=== PATIENT | female | born 1960 | race Caucasian/White ===

== ENCOUNTER 2016-10-09 18:15 | Emergency (ER) | payer MEDICAID, MEDICARE ==
[2016-10-09] MEDS ORDERED: HYDROmorphone* 1 MG/ML 1 ML SYR IV ONE (18:42)
[2016-10-09] MEDS ORDERED: NS 0.9% 1000 ML* 1,000 ML IV ONE (18:42)
[2016-10-09] MEDS ORDERED: Ondansetron INJ* 2 MG/ML VIAL IV ONE (18:42)
[2016-10-09 19:00] LABS: Hematocrit 43 % (35-47); Hemoglobin 13.9 g/dl (12.0-16.0); Mean Corpuscular HGB Conc 32 g/dl (31-36); Mean Corpuscular Hemoglobin 30 pg (27-31); Mean Corpuscular Volume 92 fL (80-97); Mean Platelet Volume 9 um3 (7.4-10.4); Red Blood Count 4.65 10^6/ul (4.0-5.4); Red Cell Distribution Width 14 % (10.5-15); White Blood Count 11.4 10^3/ul (3.5-10.8)
[2016-10-09 19:17] LABS: Albumin 4.5 g/dL (3.2-5.2); BUN/Creatinine Ratio 22.9 (8-20); Calcium 9.3 mg/dL (8.6-10.3); EGFR African American 77.6 (>60); EGFR Non-African American 60.3 (>60); Globulin 2.6 g/dL (2-4); Potassium 3.8 mmol/L (3.5-5.0); Total Bilirubin 0.4 mg/dL (0.2-1.0); Total Protein 7.1 g/dL (6.4-8.9)
[2016-10-09] MEDS ORDERED: Iohexol 300* (CONTRAST) 10 ML SDV IV ONE (19:43)
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
[2016-10-09] MEDS ORDERED: HYDROmorphone* 1 MG/ML 1 ML SYR IV SLOW PU ONE (20:15)
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
[2016-10-09] MEDS ORDERED: oxyCODONE/Acetamin 5/325 MG* TAB PO ONE (22:37)
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
[2016-10-09 23:10] VITALS: BP 141/77
== END 2016-10-09 23:51 | disposition home or self-care (01) ==
LOC: ED 18:15
DX: S22.31XA Fracture of one rib, right side, initial encounter for closed fracture (principal); S51.811A Laceration without foreign body of right forearm, initial encounter; S50.01XA Contusion of right elbow, initial encounter; V27.0XXA Motorcycle driver injured in collision with fixed or stationary object in nontraffic accident, initial encounter; Y92.9 Unspecified place or not applicable; I10 Essential (primary) hypertension; F17.210 Nicotine dependence, cigarettes, uncomplicated
CPT/HCPCS: 12001; 36415; 70450; 71260; 72125; 74177; 80053; 80320; 83605; 85025; 93005; 96361; 96374; 96375; 99284; A9270-GY; G0480; J1170; J2405; Q9967

== ENCOUNTER 2018-08-12 09:15 | Inpatient (IN) | payer MEDICARE ==
[2018-08-12] MEDS ORDERED: NS 0.9% 1000 ML** 1,000 ML IV ONE (09:30)
[2018-08-12] MEDS ORDERED: methylPREDNISolone 125 MG* 2 ML VIAL IV ONE (09:30)
--- NOTE | 2018-08-12 09:30 | ED ---
Respiratory - HPI Summary HPI Summary: A 57 y/o F brought in by ambulance with pert PMHx: COPD presents to ED with c/o worsening, productive cough onset last night. Phlegm is yellow-green and thick. Associated sx: difficulty talking, chest discomfort. She states it feels like she is suffocating. Per family, patient has been sick for the past month but her cough became really bad last night. Her BP last night was 210/180. She does not use home O2. She was given a nebulizer en route to ED. Patient still smokes. 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 Onset/Duration: Gradual Onset, Lasting Hours, Still Present Timing: Constant Initial Severity: Moderate Current Severity: Severe Pain Intensity: 7 Character: Cough (Productive) Sputum Color: Yellow, Green Associated Signs and Symptoms: Chest Pain - "discomfort" - Allergy/Home Medications Allergies/Adverse Reactions: Allergies Allergy/AdvReac Type Severity Reaction Status Date / Time Penicillins Allergy Airway Verified 08/12/18 09:23 Obstruction PMH/Surg Hx/FS Hx/Imm Hx Previously Healthy: No Cardiovascular History: Reports: Hx Hypertension Denies: Hx Pacemaker/ICD Respiratory History: Reports: Hx Asthma, Hx Chronic Obstructive Pulmonary Disease (COPD) Sensory History: Denies: Hx Hearing Aid Psychiatric History: Denies: Hx Panic Disorder - Cancer History Hx Chemotherapy: No Hx Radiation Therapy: No - Surgical History Surgery Procedure, Year, and Place: TONSILECTOMY, APPENDECTOMY, C SECTION X2 Infectious Disease History: No Infectious Disease History: Denies: Traveled Outside the [place] in Last 30 Days - Family History Known Family History: Positive: Other - Breast CA to 2 paternal aunts - Social History Occupation: Disabled Lives: With Family Alcohol Use: Rare Hx Substance Use: No Substance Use Type: Reports: None Hx Tobacco Use: Yes Smoking Status (MU): Light Every Day Tobacco Smoker Review of Systems Negative: Fever Positive: Chest Pain - "discomfort" Positive: Cough, Other - pos: difficulty talking All Other Systems Reviewed And Are Negative: Yes Physical Exam - Summary Physical Exam Summary: VITAL SIGNS: Reviewed. GENERAL: Patient is a well-developed and nourished FEMALE who is lying comfortable in the stretcher. Patient is in some respiratory distress secondary to SOB. She is able to speak in full sentences. She is on 4L nasal cannula at bedside. HEAD AND FACE: No signs of trauma. No ecchymosis, hematomas or skull depressions. No sinus tenderness. EYES: PERRLA, EOMI x 2, No injected conjunctiva, no nystagmus. EARS: Hearing grossly intact. Ear canals and tympanic membranes are within normal limits. MOUTH: Oropharynx within normal limits. NECK: Supple, trachea is midline, no adenopathy, no JVD, no carotid bruit, no c- spine tenderness, neck with full ROM. CHEST: Symmetric, no tenderness at palpation LUNGS: Decreased breath sounds bilaterally, diffuse wheezing. CVS: Tachycardic, S1 and S2 present, no murmurs or gallops appreciated. ABDOMEN: Soft, non-tender. No signs of distention. No rebound, no guarding, and no masses palpated. Bowel sounds are normal. EXTREMITIES: FROM in all major joints, no edema, no cyanosis or clubbing. NEURO: Alert and oriented x 3. No acute neurological deficits. Speech is normal and follows commands. SKIN: Dry and warm Triage Information Reviewed: Yes Vital Signs On Initial Exam: Initial Vitals Temp Pulse Resp BP Pulse Ox 98.8 F 111 26 174/119 97 08/12/18 09:16 08/12/18 09:16 08/12/18 09:16 08/12/18 09:16 08/12/18 09:16 Vital Signs Reviewed: Yes Diagnostics - Vital Signs Vital Signs Temp Pulse Resp BP Pulse Ox 08/12/18 09:20 112 174/119 84 08/12/18 09:18 118 93 08/12/18 09:16 98.8 F 111 26 174/119 97 - Laboratory Result Diagrams: 08/12/18 09:43 08/12/18 09:43 Lab Statement: Any lab studies that have been ordered have been reviewed, and results considered in the medical decision making process. - Radiology CXR Radiology Interpretation Completed By: Radiologist Summary of Radiographic Findings: IMPRESSION: No radiographic evidence for acute cardiopulmonary abnormality on this portable chest x-ray. ED provider has reviewed this report. - EKG 0924 Cardiac Rate: Tachycardia - 107 bpm EKG Rhythm: Sinus Tachycardia EKG Comparison: No Significant Change - from EKG on 4/30/17. Summary of EKG Findings: No ST elevation. Re-Evaluation - Re-Evaluation 1 Re-Evaluation Time: 11:55 Change: Unchanged Comment: Discussing plans to admit pt. Disposition - Course Assessment/Plan: This patient is a 57-year-old female with history of COPD presents to the emergency room complaining that the patient is having shortness of breath. The patient continues to smoke and she does not wear oxygen at home. Test result shows a wbcs of 10.9, hemoglobin 16, hematocrit 49, and platelets 194. ABG shows a pH of 7.39, PCO2 41, PO2 is 92, O2 sat is 97.9. Troponin is 0.01. Chest x-ray impression: No radiographic evidence for acute cardiopulmonary abnormality on this for about chest x-ray. Influenza A and B is negative. In the ED course the patient was given IV fluids, DuoNebs and Solu-Medrol for the COPD exacerbation. After multiple DuoNebs, the patient is still having some shortness of breath, she is slightly tachycardic, and without oxygen the patient becomes hypoxic. The O2 sat without oxygen went down to 87. Therefore, the patient was given an additional DuoNeb and she was placed on oxygen be a nasal cannula. At this time I discussed my physical exam, findings and test results with Dr. Osorio from the hospitalist services who accepted the patient for admission. The patient is hemodynamically stable alert and oriented 3. - Differential Dx - Cardiopulmonary Differential Diagnoses - Cardiopulmonary: Exacerbation Of COPD, Other - Pneumonia, influenza, URI - Diagnoses Provider Diagnoses: COPD (chronic obstructive pulmonary disease), Hypoxia - Physician Notifications Discussed Care Of Patient With: Mahnaz Osorio - hospitalist Time Discussed With Above Provider: 11:50 Instructed by Provider To: Admit As Inpatient - Critical Care Time Critical Care Time: 30-74 min Discharge - Sign-Out/Discharge Documenting (check all that apply): Patient Departure - ADMIT Patient Received Moderate/Deep Sedation with Procedure: No - Discharge Plan Condition: Improved Disposition: ADMITTED TO [facility] - Billing Disposition and Condition Condition: IMPROVED Disposition: Admitted to [facility] - Attestation Statements Document Initiated by Scribe: Yes Documenting Scribe: Tracy Dinh Provider For Whom Scribe is Documenting (Include Credential): Dr. Maurizio Dumont MD Scribe Attestation: I, Tracy Dinh, scribed for Dr. Maurizio Dumont MD on 08/12/18 at 1812. Scribe Documentation Reviewed: Yes Provider Attestation: The documentation as recorded by the barbara, Tracy Dinh accurately reflects the service I personally performed and the decisions made by me, Dr. Maurizio Dumont MD Status of Scribe Document: Viewed
[2018-08-12] MEDS ORDERED: Albuterol/Ipratropium NEB.SOL* Albuterol 2.5 MG/Ipratropium 0.5 MG 3 ML INH ONE ×2 (09:31→12:00)
[2018-08-12] MEDS ORDERED: Ondansetron INJ* 2 MG/ML VIAL ONE (09:41)
[2018-08-12] MEDS ORDERED: Ondansetron INJ* 2 MG/ML VIAL IV ONE (09:44)
[2018-08-12] MEDS: Albuterol/Ipratropium NEB.SOL* Albuterol 2.5 MG/Ipratropium 0.5 MG 3 ML INH SCH ×2 (09:51→14:26)
[2018-08-12 09:53] LABS: ABS Basophils 0.2 10^3/ul (0-0.2); ABS Eosinophils 0.7 10^3/ul (0-0.6); ABS Lymphocytes 2.8 10^3/ul (1.0-4.8); ABS Monocytes 0.9 10^3/ul (0-0.8); ABS Neutrophils 6.2 10^3/ul (1.5-7.7); ABS Nucleated RBC 0 10^3/ul; Eosinophil % 6.4 %; Hematocrit 49 % (35-47); Lymphocyte % 26.2 %; Mean Corpuscular HGB Conc 33 g/dl (31-36); Mean Corpuscular Hemoglobin 30 pg (27-31); Mean Corpuscular Volume 91 fL (80-97); Mean Platelet Volume 8.7 fL (7.4-10.4); Nucleated Red Blood Cells % 0.1; Platelet Count 184 10^3/ul (150-450); Red Blood Count 5.39 10^6/ul (4.00-5.40); Red Cell Distribution Width 14 % (10.5-15); White Blood Count 10.9 10^3/ul (3.5-10.8)
[2018-08-12 10:11] LABS: Troponin I 0.01 ng/mL (<0.04)
[2018-08-12 10:13] LABS: CKMB ng/mL 9.4 ng/mL (0.6-6.3)
[2018-08-12 10:14] LABS: Influenza A Molecular NEGATIVE (Negative); Influenza B Molecular NEGATIVE (Negative)
[2018-08-12 10:22] LABS: ALT 18 U/L (7-52); AST 22 U/L (13-39); Albumin 4.5 g/dL (3.2-5.2); Albumin/Globulin Ratio 1.6 (1-3); Alkaline Phosphatase 104 U/L (34-104); Anion Gap 9 mmol/L (2-11); BUN/Creatinine Ratio 17.9 (8-20); Blood Urea Nitrogen 17 mg/dL (6-24); C Reactive Protein < 1.00 mg/L (<8.01); CO2 Carbon Dioxide 25 mmol/L (22-32); Calcium 9.9 mg/dL (8.6-10.3); Chloride 105 mmol/L (101-111); Creatine Kinase 138 U/L (10-223); EGFR African American 73.4 (>60); EGFR Non-African American 60.6 (>60); Globulin 2.8 g/dL (2-4); Glucose 105 mg/dL (70-100); Potassium 4.3 mmol/L (3.5-5.0); Sodium 139 mmol/L (135-145); Total Protein 7.3 g/dL (6.4-8.9)
[2018-08-12] MEDS ORDERED: Nitroglycerin TAB 0.4 MG* 0.4 MG TAB SL ONE (10:25)
[2018-08-12] MEDS ORDERED: Aspirin 81 mg CHEW TAB* 81 MG TAB.CHEW PO ONE (10:25)
[2018-08-12] MEDS ORDERED: Aspirin 81 mg CHEW TAB* 81 MG TAB.CHEW ONE (10:32)
[2018-08-12] MEDS ORDERED: Ketorolac INJ* 30 MG/ML 1 ML VIAL IV PUSH ONE (11:17)
[2018-08-12] MEDS ORDERED: Albuterol/Ipratropium NEB.SOL* Albuterol 2.5 MG/Ipratropium 0.5 MG 3 ML INH PRN (12:53)
[2018-08-12] MEDS ORDERED: Ondansetron INJ* 2 MG/ML VIAL IV PRN (12:55)
[2018-08-12] MEDS ORDERED: Acetaminophen TAB* 325 MG PO PRN (12:56)
[2018-08-12] MEDS ORDERED: Mouth Piece, Nicotine* 1 EACH CARTRIDGE INH PRN (13:05)
[2018-08-12] MEDS ORDERED: GuaiFENesin DM* 5 ML UDC PO PRN (13:43)
[2018-08-12] MEDS: Heparin VIAL(*) 5000 UNITS/ML VIAL (FIVE THOUSAND) SUBCUT SCH ×2 (14:41→20:48)
[2018-08-12] MEDS: clonazePAM TAB(*) 0.5 MG PO PRN ×2 (15:16→20:46)
[2018-08-12] MEDS: Morphine ORAL.SOLN 10 mg* 2 MG/ML UDC 5 ml PO PRN ×3 (16:21→20:45)
--- NOTE | 2018-08-12 19:49 | HP ---
CC: Kayla Rod MD * [facility] MEDICINE HISTORY AND PHYSICAL: DATE OF ADMISSION: 08/12/18 PRIMARY CARE PHYSICIAN: Kayla Rod MD. ATTENDING PHYSICIAN: Mahnaz Osorio MD * (dictation provided by Rosy Atkins NP ). CHIEF COMPLAINT: Shortness of breath and chest pain. HISTORY OF PRESENT ILLNESS: Ms. Lane is a 57-year-old female with a past medical history of COPD and hypertension, who presents to the hospital today with concern for shortness of breath. Ms. Lane states that she was originally diagnosed with COPD last year in [place]. At the time of her diagnosis , she was told she had a stage IV COPD diagnosis. She was hospitalized in [place] and was in the critical care unit for a time. She reports that she has had multiple exacerbations since then and has been treated with steroids. She reports over the past month that she again was feeling very poorly. She has been increasingly short of breath with an increasing cough. Over the past couple of days, she has not even been able to walk from her living room to the bathroom without becoming extremely winded. Today, she was noted to be mitchell and have purple lips, and therefore she was brought to the emergency room for evaluation. She denies fever. She does confirm chest pain in the center of her chest and at times, she describes it radiating into her left arm. She has been eating very poorly because she was so short of breath that she could not swallow and breathe at the same time. In the emergency room, Ms. Lane was now requiring at least 4 L of oxygen to maintain an O2 saturation greater than 90%. During my conversation, she was 91% on 4 L. She states she is breathing easier and feels much better on the oxygen and after receiving methylprednisolone and Duo nebulizer treatments. Her labs are unremarkable. Her blood gas shows a pH of 7.39, pCO2 41, pO2 92, bicarb 24.6. Her troponin is 0.01. Her flu swab is negative. Her chest x-ray shows no evidence of pneumonia, sinus rhythm. Her EKG shows sinus tachycardia with no evidence of ischemia. PAST MEDICAL HISTORY: 1. COPD. 2. Hypertension. 3. Atrial fibrillation. MEDICATIONS: The patient cannot remember the medication names, but she does note that she is on: 1. Prozac. 2. Clonazepam. 3. Singulair. 4. Albuterol. She does get her prescriptions from a pharmacy in [place], which is not open today , but that should be reviewed tomorrow. ALLERGIES: PENICILLIN. FAMILY HISTORY: The patient reports her sister related to lung cancer and COPD. SOCIAL HISTORY: The patient is a continued smoker. She smokes about 9 to 10 cigarettes a day, but she has not done so over the past couple of weeks because she was so short of breath. She denies any alcohol or drug use. She lives alone in [facility]. REVIEW OF SYSTEMS: A 14-point review of systems was completed with Ms. Lane and all those not mentioned above were negative. PHYSICAL EXAMINATION GENERAL: Ms. Lane is sitting in the bed. She is in no acute distress, but she does appear anxious and mildly short of breath at rest. VITAL SIGNS: Temperature 98.8, heart rate 101, respiratory rate 30, O2 saturation 91% on 4 L nasal cannula, blood pressure 142/92. LUNGS: Have rhonchi and wheezing bilaterally throughout. HEART: S1, S2. No murmur, rub, or gallop and regular. ABDOMEN: Soft, nontender with bowel sounds positive x4. EXTREMITIES: No cyanosis or edema. NEURO: She is alert. She is oriented x3. She moves all extremities equally. There is no facial asymmetry or focal weakness. Extraocular movements are intact. SKIN: Intact. LABORATORY DATA/DIAGNOSTIC STUDIES: WBC 10.9, hemoglobin 16.0, hematocrit 49, platelet count 184. ABG is as read above. Sodium 139, potassium 4.3, chloride 105, serum bicarbonate 25, BUN 17, creatinine 0.95, glucose 105. Lactic acid 0.7. Troponin 0.01. CRP less than 1. Flu swab is negative. Chest x-ray here is read as "no radiographic evidence for acute cardiopulmonary abnormality on this portable chest x-ray." EKG shows a sinus tachycardia with no evidence of ischemia. ASSESSMENT AND PLAN: Ms. Lane is a 57-year-old female with a past medical history of advanced chronic obstructive pulmonary disease, who presents to the hospital today with chest pain and shortness of breath, thought to be secondary to chronic obstructive pulmonary disease exacerbation. Our plans are for inpatient admission with expected length of stay to be greater than 2 days for the followin. Chronic obstructive pulmonary disease exacerbation. The patient shows no signs of pneumonia or sepsis. Plan to treat with Solu-Medrol, Duo nebulizers and oxygen. She was not requiring oxygen at home, but I am suspicious that she will need that at discharge. She is currently on a minimum of 4 L at rest to maintain an O2 saturation of 91%. 2. Hypertension. The patient is unaware of the names of the medications that she takes as outpatient. I am not ordering anything at the moment, but we can add on a p.r.n. agent until her medication can be reviewed with her pharmacy tomorrow. 3. Anxiety. The patient takes clonazepam as outpatient for anxiety, which I think is appropriate given her advanced stage chronic obstructive pulmonary disease. 4. Code status is full code. Also note that the patient is interested in transferring her generalized care to the [facility] as she has been receiving care down in [place] and it is a long drive for her. I have assured her that we do offer pulmonology, cardiology, and general internal medicine services and that would be happy to set this up for her at the time of discharge. TIME SPENT: Approximately 60 minutes were spent on the admission of this patient, more than half of the time was spent with the patient at the bedside reviewing the events leading up to this hospitalization, performing the physical examination, and reviewing the plan of care. ROSY ATKINS NP [id number]/[facility] #: [id number] LONNIE
[2018-08-12] MEDS: Benzonatate CAP* 100 MG PO SCH (20:46)
[2018-08-12] MEDS: Nicotine Inhaler* 10 MG AMP INH PRN ×2 (20:47→23:52)
[2018-08-12] MEDS: methylPREDNISolone SOD 40 MG* 1 ML VIAL IV SCH (20:48)
[2018-08-12] MEDS: Nicotine Patch Removal NOTE PATCH OFF SCH (20:48)
[2018-08-13] MEDS: Morphine ORAL.SOLN 10 mg* 2 MG/ML UDC 5 ml PO PRN ×5 (01:01→21:38)
[2018-08-13] MEDS: Nicotine Inhaler* 10 MG AMP INH PRN ×4 (05:32→21:39)
[2018-08-13] MEDS: Heparin VIAL(*) 5000 UNITS/ML VIAL (FIVE THOUSAND) SUBCUT SCH ×3 (05:32→21:40)
[2018-08-13] MEDS: Nicotine PATCH 14 MG/24 HR* PATCH TRANSDERM SCH (08:20)
[2018-08-13] MEDS: Benzonatate CAP* 100 MG PO SCH ×2 (08:22→21:40)
[2018-08-13] MEDS: methylPREDNISolone SOD 40 MG* 1 ML VIAL IV SCH ×2 (08:22→21:38)
[2018-08-13] MEDS: clonazePAM TAB(*) 0.5 MG PO PRN ×3 (08:29→21:39)
[2018-08-13] MEDS ORDERED: Tiotropium CAP.INH* CAP.INH/18 MCG (USE ORDER SET !) INH ONE (08:34)
--- NOTE | 2018-08-13 08:36 | PN ---
Subjective Date of Service: 08/13/18 Interval History: Minimally productive cough. SOB improved can more easily talk in full sentences but still very SOB when walking to bathroom. Objective Active Medications: Acetaminophen (Tylenol Tab*) 650 mg PO Q6H PRN PRN Reason: PAIN Last Admin: 08/12/18 20:47 Dose: 650 mg Albuterol/Ipratropium (Duoneb (Albuterol 2.5 Mg/Ipratropium 0.5 Mg)) 1 neb INH Q4H PRN PRN Reason: SOB/WHEEZING Last Admin: 08/12/18 21:42 Dose: 1 neb Benzonatate (Tessalon Cap*) 100 mg PO BID [facility] Last Admin: 08/13/18 08:22 Dose: 100 mg Clonazepam (Klonopin Tab(*)) 0.5 mg PO TID PRN PRN Reason: ANXIETY Last Admin: 08/13/18 08:29 Dose: 0.5 mg Device (Nicotine Mouth Piece*) 1 each INH .USE W/ CARTRIDGE PRN PRN Reason: WITHDRAWAL - NICOTINE Guaifenesin/Dextromethorphan (Robitussin Dm*) 10 ml PO Q4H PRN PRN Reason: COUGH Heparin Sodium (Porcine) (Heparin Vial(*)) 5,000 units SUBCUT Q8HR [facility] Last Admin: 08/13/18 05:32 Dose: 5,000 units Methylprednisolone Sodium Succinate (Solu-Medrol 40 Mg) 60 mg IV Q12H [facility] Last Admin: 08/13/18 08:22 Dose: 60 mg Morphine Sulfate (Morphine Oral.Soln 10 Mg*) 2.5 mg PO Q2H PRN PRN Reason: pain/sob Last Admin: 08/13/18 06:39 Dose: 2.5 mg Nicotine (Nicotine Inhaler*) 10 mg INH Q2H PRN PRN Reason: CRAVING Last Admin: 08/13/18 08:29 Dose: 10 mg Nicotine (Nicotine Patch 14 Mg/24 Hr*) 1 patch TRANSDERM DAILY [facility] Last Admin: 08/13/18 08:20 Dose: 1 patch Ondansetron HCl (Zofran Inj*) 4 mg IV Q6H PRN PRN Reason: NAUSEA Pharmacy Profile Note (Nicotine Patch Removal Note*) 1 note PATCH OFF 2100 [facility] Last Admin: 08/12/18 20:48 Dose: Not Given Vital Signs - 8 hr 08/13/18 08/13/18 08/13/18 00:51 00:59 01:01 Temperature 98.1 F Pulse Rate 92 84 Respiratory 24 16 24 Rate Blood Pressure 140/74 (mmHg) O2 Sat by Pulse 97 97 Oximetry 08/13/18 08/13/18 08/13/18 02:26 03:32 05:18 Temperature 97.8 F 97.9 F Pulse Rate 83 96 Respiratory 24 20 21 Rate Blood Pressure 132/70 141/80 (mmHg) O2 Sat by Pulse 95 93 Oximetry 08/13/18 08/13/18 06:39 08:29 Temperature Pulse Rate Respiratory 22 24 Rate Blood Pressure (mmHg) O2 Sat by Pulse Oximetry Oxygen Devices in Use Now: Nasal Cannula - 4L Appearance: NAD Eyes: No Scleral Icterus, PERRLA Ears/Nose/Mouth/Throat: NL Teeth, Lips, Gums, Clear Oropharnyx Neck: NL Appearance and Movements; NL JVP, Trachea Midline Respiratory: Symmetrical Chest Expansion and Respiratory Effort, - - diffuse expiratory wheezes throughout Abdominal: NL Sounds; No Tenderness; No Distention, No Hepatosplenomegaly Lymphatic: No Cervical Adenopathy Extremities: No Edema Skin: No Rash or Ulcers Neurological: Alert and Oriented x 3 Result Diagrams: 08/12/18 09:43 08/12/18 09:43 Microbiology and Other Data: Microbiology 08/12/18 09:45 Influenza Types A,B Antigen - Final Nasal Specimen received for Influenza A/B Molecular testing Assess/Plan/Problems-Billing Assessment: 57 yo F h/o COPD, HTN, current tobacco abuse pw increased SOB - Patient Problems (1) Acute respiratory failure with hypoxia Comment: COPD exacerbation, suspect viral trigger IV steroids start dulera and spiriva prn duonemica interested in local pulmonology referral (vs current in [place]) on discharge (2) Essential (primary) hypertension Comment: borderline on no meds (3) Tobacco abuse Current Visit: Yes Status: Acute Code(s): Z72.0 - TOBACCO USE SNOMED Code( s): 929328267 (4) Anxiety Comment: clonazapam PRN (5) DVT prophylaxis Comment: HSQ
[2018-08-13] MEDS ORDERED: Spiriva Inhaler DEVICE* 1 EACH DEVICE INH ONE (09:00)
[2018-08-13] MEDS ORDERED: Spiriva Inhaler DEVICE* 1 EACH DEVICE SCH (09:00)
[2018-08-13] MEDS: Mometasone/Formoter 200/5 MDI INH SCH ×2 (09:09→19:09)
[2018-08-13] MEDS: Nicotine Patch Removal NOTE PATCH OFF SCH (21:40)
[2018-08-14] MEDS: Heparin VIAL(*) 5000 UNITS/ML VIAL (FIVE THOUSAND) SUBCUT SCH ×2 (06:06→13:49)
[2018-08-14] MEDS: Mometasone/Formoter 200/5 MDI INH SCH (09:16)
[2018-08-14] MEDS: Nicotine PATCH 14 MG/24 HR* PATCH TRANSDERM SCH (09:41)
[2018-08-14] MEDS: methylPREDNISolone SOD 40 MG* 1 ML VIAL IV SCH (09:41)
[2018-08-14] MEDS: Morphine ORAL.SOLN 10 mg* 2 MG/ML UDC 5 ml PO PRN (09:51)
[2018-08-14] MEDS: clonazePAM TAB(*) 0.5 MG PO PRN (09:53)
[2018-08-14] MEDS: Benzonatate CAP* 100 MG PO SCH (09:54)
[2018-08-14 12:14] VITALS: BP 132/91
--- NOTE | 2018-08-15 00:05 | DS ---
CC: Dr. Kayla Rod * DISCHARGE SUMMARY: DATE OF ADMISSION: 08/12/18 DATE OF DISCHARGE: 08/14/18 PRIMARY CARE PROVIDER: Dr. Kayla Rod. DISPOSITION ON DISCHARGE: Home. CONDITION ON DISCHARGE: Good. PRIMARY DIAGNOSIS: Chronic obstructive pulmonary disease exacerbation. SECONDARY DIAGNOSES: Include: 1. Chronic obstructive pulmonary disease with chronic respiratory failure, now on home oxygen 2 L. 2. Hypertension. 3. Atrial fibrillation. 4. Anxiety. 5. Tobacco abuse. MEDICATIONS ON DISCHARGE: 1. Prednisone 50 mg daily for 5 additional days. 2. Klonopin 0.5 mg 3 times a day as needed. 3. Nicotine patch and inhaler. 4. Breo Ellipta/fluticasone 40 mg daily. 5. Amitriptyline 10 mg daily. 6. Albuterol 2 puffs inhaled every 4 hours as needed. PERTINENT IMAGING DATA: Chest x-ray, impression: No evidence for acute cardiopulmonary abnormality on portable chest x-ray. PERTINENT LABORATORY DATA: White blood cell count on presentation 10.9. Troponin I 0.01, three consecutive checks. CRP less than 1. BNP 81. Lactic acid 0.7. Negative influenza A and B. Negative blood cultures to date. HISTORY OF PRESENT ILLNESS AND HOSPITAL COURSE: This is a 57-year-old female with past medical history as outlined in history of present illness on day of admission include COPD, presented to the hospital with shortness of breath, thought to be secondary to COPD exacerbation. She was requiring 4 L of oxygen on presentation. She was started on IV steroids as well as inhaled steroids, p.r.n. nebulizers with rapid improvement. By 48 hours, she had still significant wheezing, remained in the hospital until the day of discharge, at which time, her lungs had largely resolved adventitious sound with trace expiratory wheezes. Able to ambulate in the floor. Required 2 L of oxygen which she was discharged with. It was noted that she had carried diagnosis of essential hypertension where she remained borderline hypertensive without medications. Of note, multiple medications on her home list she has not been filling, not been taking, which was confirmed with Jesus in [place]. She did indicate that some of the medications which had not been filled including Prozac and amitriptyline, she had been getting from a friend, and therefore they were refilled and sent to [facility] along with other medications. Clonazepam was not refilled for the patient at this time. At followup please; 1. Ensure patient's respiratory status remains stable on 5-day course of outpatient continued steroid. 2. Encourage to continue tobacco cessation. The patient is currently in maintenance phase and requesting nicotine patch and inhaler. 3. Just add Losartan back to home regimen for blood pressure if needed on discharge. 4. Encourage medication compliance . 5. No other specific labs or vitals that need follow up. Reasons to return to the hospital including but not limited to recurrent or worsening symptoms, shortness of breath, chest pain, lightheadedness, loss of consciousness or near loss of consciousness, fevers, chills, night sweats, bleeding from any source, inability to obtain or tolerate medications discussed at length with the patient. She acknowledged understanding. TIME SPENT: Greater than 45 minutes were spent on discharge of the patient, greater than half was spent [id number] with the patient. [id number]/[facility] #: [id number] LONNIE
== END 2018-08-14 15:15 | disposition home or self-care (01) | DRG 190 ==
LOC: ED 09:15 → MED 12:17 → OBSVTOIN 08-13 10:00 → MED 08-13 13:50
PROVIDERS: ADMIT Internal Medicine; ATTEND Internal Medicine
DX: J44.1 Chronic obstructive pulmonary disease with (acute) exacerbation (principal); J96.21 Acute and chronic respiratory failure with hypoxia; I10 Essential (primary) hypertension; I48.91 Unspecified atrial fibrillation; F17.210 Nicotine dependence, cigarettes, uncomplicated; F41.9 Anxiety disorder, unspecified; Z88.0 Allergy status to penicillin; Z80.1 Family history of malignant neoplasm of trachea, bronchus and lung; Z99.81 Dependence on supplemental oxygen; Z90.89 Acquired absence of other organs; Z80.3 Family history of malignant neoplasm of breast; Z23 Encounter for immunization; Z82.5 Family history of asthma and other chronic lower respiratory diseases
CPT/HCPCS: 36415; 71045; 80053; 82550; 82553; 82803; 83605; 83880; 84484; 85025; 85730; 86140; 87040; 90686; 93005; 94640; 99284; A9270-GY; J1644; J1885; J2405; J2920; J2930

== ENCOUNTER 2020-08-06 07:03 | Observation (INO) ==
[2020-08-06] MEDS ORDERED: Albuterol 2.5mg/3 ml (0.083%) NEB.SOLN INH ONE (07:34)
[2020-08-06] MEDS ORDERED: NS 0.9% 1000 ml BAG 1,000 ML IV ONE (07:35)
[2020-08-06] MEDS ORDERED: cefTRIAXone 1 gm/50 mL NS BAG 1 GM/50 ML BAG IV ONE (07:44)
[2020-08-06] MEDS ORDERED: Azithromycin 500 mg/250 ml NS 500 MG/250 ML BAG IVPB ONE (07:44)
[2020-08-06] MEDS ORDERED: methylPREDNISolone 125 mg 2 ML VIAL IV ONE (07:44)
[2020-08-06] MEDS ORDERED: Albuterol HFA INHALER 8 gm MDI INH ONE (08:01)
[2020-08-06 08:17] LABS: ABS Basophils 0.1 10^3/ul (0-0.2); ABS Eosinophils 0.1 10^3/ul (0-0.6); ABS Lymphocytes 3.3 10^3/ul (1.0-4.8); ABS Monocytes 1.3 10^3/ul (0-0.8); ABS Neutrophils 8.9 10^3/ul (1.5-7.7); Eosinophil % 0.5 %; Hematocrit 39 % (35-47); Hemoglobin 12.6 g/dL (12.0-16.0); Lymphocyte % 24.4 %; Mean Corpuscular HGB Conc 32 g/dL (31-36); Mean Corpuscular Hemoglobin 28 pg (27-31); Mean Corpuscular Volume 86 fL (80-97); Mean Platelet Volume 8.4 fL (7.4-10.4); Platelet Count 247 10^3/uL (150-450); Red Blood Count 4.55 10^6 /uL (3.70-4.87); Red Cell Distribution Width 16 % (10-15); White Blood Count 13.7 10^3/uL (3.5-10.8)
[2020-08-06 08:34] LABS: Albumin 4.1 g/dL (3.2-5.2); Albumin/Globulin Ratio 1.7 (1-3); BUN/Creatinine Ratio 19.1 (8-20); C Reactive Protein 1.69 mg/L (<8.01); Calcium 9.3 mg/dL (8.6-10.3); EGFR African American 107.2 (>60); EGFR Non-African American 88.6 (>60); Globulin 2.4 g/dL (2-4); Total Bilirubin 0.3 mg/dL (0.2-1.0); Total Protein 6.5 g/dL (6.4-8.9)
[2020-08-06 08:38] LABS: Influenza A Molecular Negative (Negative); Influenza B Molecular Negative (Negative)
[2020-08-06] MEDS ORDERED: Morphine 4 MG/ML VIAL (1 ml) IV ONE (09:26)
[2020-08-06] MEDS ORDERED: Albuterol/Ipratropium NEB.SOL (2.5/0.5 MG) 3 ML NEB.SOLN INH PRN (10:22)
[2020-08-06] MEDS ORDERED: Senna/Docusate 8.6/50 mg (NF) TAB PO PRN (10:26)
[2020-08-06] MEDS ORDERED: Ondansetron ODT 4 mg TAB 4 MG TAB PO PRN (10:26)
[2020-08-06] MEDS ORDERED: Diclofenac 1% GEL (NF) 100 GM TUBE TOPICAL PRN (10:26)
[2020-08-06 10:35] LABS: Urine Appearance Clear; Urine Bilirubin Negative (Negative); Urine Blood Negative (Negative); Urine Color Yellow; Urine Glucose Negative (Negative); Urine Ketones Negative (Negative); Urine Nitrite Negative (Negative); Urine Protein Negative (Negative); Urine Specific Gravity 1.012 (1.010-1.030); Urine Urobilinogen Negative (Negative)
[2020-08-06] MEDS ORDERED: Albuterol/Ipratropium NEB.SOL (2.5/0.5 MG) 3 ML NEB.SOLN INH SCH (11:00)
[2020-08-06] MEDS ORDERED: Enoxaparin 40 MG/0.4 ML SYR SUBCUT SCH (11:00)
[2020-08-06] MEDS ORDERED: Docusate LIQ 100 MG/10 ML UDC PO PRN (11:49)
[2020-08-06] MEDS ORDERED: Senna TAB 8.6 mg TAB PO PRN (11:49)
[2020-08-06] MEDS: Morphine ER 30 mg TAB ** extended release PO SCH ×2 (13:59→18:31)
[2020-08-06] MEDS: Mometasone/Formoter 200/5 MDI INH SCH ×3 (14:17→19:10)
[2020-08-06] MEDS: SPIRIVA Respimat (tiotropium) 2.5 mcg/inh Inhaler INH SCH (14:18)
[2020-08-06] MEDS: Albuterol/Ipratropium NEB.SOL (2.5/0.5 MG) 3 ML NEB.SOLN INH SCH ×3 (15:48→22:30)
[2020-08-07] MEDS: Morphine ER 30 mg TAB ** extended release PO SCH ×2 (00:09→06:41)
[2020-08-07] MEDS: Albuterol/Ipratropium NEB.SOL (2.5/0.5 MG) 3 ML NEB.SOLN INH SCH ×4 (03:28→11:08)
[2020-08-07] MEDS: SPIRIVA Respimat (tiotropium) 2.5 mcg/inh Inhaler INH SCH (07:11)
[2020-08-07] MEDS: Mometasone/Formoter 200/5 MDI INH SCH (07:12)
[2020-08-07 07:42] VITALS: BP 113/58
[2020-08-07] MEDS ORDERED: methylPREDNISolone SOD 40 mg/ml 1 ml VIAL IV SCH (08:00)
[2020-08-07] MEDS ORDERED: cefTRIAXone 1 gm/50 mL NS BAG 1 GM/50 ML BAG IVPB SCH (09:00)
[2020-08-07] MEDS ORDERED: Azithromycin 500 mg/250 ml NS 500 MG/250 ML BAG IVPB SCH (10:00)
[2020-08-07 11:03] LABS: ABS Lymphocytes 1.4 10^3/ul (1.0-4.8); ABS Monocytes 0.4 10^3/ul (0-0.8); ABS Neutrophils 13.7 10^3/ul (1.5-7.7); Eosinophil % 0.1 %; Hematocrit 39 % (35-47); Hemoglobin 12.2 g/dL (12.0-16.0); Lymphocyte % 9.2 %; Mean Corpuscular HGB Conc 31 g/dL (31-36); Mean Corpuscular Hemoglobin 28 pg (27-31); Mean Corpuscular Volume 88 fL (80-97); Mean Platelet Volume 8.9 fL (7.4-10.4); Platelet Count 226 10^3/uL (150-450); Red Blood Count 4.44 10^6 /uL (3.70-4.87); Red Cell Distribution Width 16 % (10-15); White Blood Count 15.7 10^3/uL (3.5-10.8)
[2020-08-07 11:54] LABS: BUN/Creatinine Ratio 24.1 (8-20); Calcium 9.6 mg/dL (8.6-10.3); EGFR African American 90.1 (>60); EGFR Non-African American 74.5 (>60); Potassium 4.6 mmol/L (3.5-5.0)
== END 2020-08-07 11:50 | disposition home or self-care (01) ==
LOC: ED 07:03 → INTOOBSV 10:23 → MED 10:23
PROVIDERS: ADMIT Internal Medicine; ATTEND Internal Medicine

== ENCOUNTER 2020-12-06 20:56 | Inpatient (IN) ==
[2020-12-06] MEDS ORDERED: Albuterol 0.5% CONC CONTINUOUS NEB.SOL 5 mg/ml 20 ml BOT INH ONE (21:28)
[2020-12-06 21:56] LABS: ABS Basophils 0.2 10^3/ul (0-0.2); ABS Eosinophils 0.5 10^3/ul (0-0.6); ABS Neutrophils 2.9 10^3/ul (1.5-7.7); Eosinophil % 6.1 %; Hematocrit 40 % (35-47); Hemoglobin 13.1 g/dL (12.0-16.0); Lymphocyte % 39.6 %; Mean Corpuscular HGB Conc 33 g/dL (31-36); Mean Corpuscular Hemoglobin 28 pg (27-31); Mean Corpuscular Volume 86 fL (80-97); Mean Platelet Volume 8.5 fL (7.4-10.4); Platelet Count 324 10^3/uL (150-450); Red Blood Count 4.65 10^6 /uL (3.70-4.87); Red Cell Distribution Width 16 % (10-15); White Blood Count 7.6 10^3/uL (3.5-10.8)
[2020-12-06 22:11] LABS: Albumin 3.3 g/dL (3.2-5.2); Albumin/Globulin Ratio 1.2 (1-3); C Reactive Protein 7.12 mg/L (<8.01); Calcium 9.4 mg/dL (8.6-10.3); EGFR Non-African American 71.1 (>60); Globulin 2.7 g/dL (2-4); Magnesium 1.8 mg/dL (1.9-2.7); Potassium 3.8 mmol/L (3.5-5.0); Total Bilirubin 0.4 mg/dL (0.2-1.0)
[2020-12-06 22:13] LABS: Troponin I 0.01 ng/mL (<0.03)
[2020-12-06] MEDS ORDERED: methylPREDNISolone 125 mg 2 ML VIAL IV ONE (22:44)
[2020-12-06 23:04] LABS: PCO2 Arterial 66 mmHg (35-45)
[2020-12-06 23:09] LABS: PO2 Arterial 57 mmHg (80-100)
[2020-12-06] MEDS ORDERED: methylPREDNISolone SOD 40 mg/ml 1 ml VIAL IV SCH (23:45)
[2020-12-06] MEDS ORDERED: Albuterol 2.5mg/3 ml (0.083%) NEB.SOLN INH PRN (23:55)
[2020-12-07] MEDS: Albuterol/Ipratropium NEB.SOL (2.5/0.5 MG) 3 ML NEB.SOLN INH SCH ×5 (00:06→13:25)
[2020-12-07] MEDS ORDERED: Magnesium Sulfate 2 gm BAG 2 GM/50 ML BAG IVPB ONE ×2 (00:14→05:25)
[2020-12-07 00:39] LABS: PCO2 Arterial 62 mmHg (35-45); PO2 Arterial 84 mmHg (80-100)
[2020-12-07 01:00] LABS: Activated Partial Thrombo Time 31.8 seconds (26.0-38.0); INR 1.05 (0.82-1.09)
[2020-12-07 01:10] LABS: Influenza A Molecular Negative (Negative); Influenza B Molecular Negative (Negative)
[2020-12-07] MEDS ORDERED: cefTRIAXone 1 gm/50 mL NS BAG 1 GM/50 ML BAG IVPB SCH (02:00)
[2020-12-07] MEDS: Azithromycin 500 mg/250 ml NS 500 MG/250 ML BAG IVPB SCH (03:17)
[2020-12-07 05:05] LABS: PCO2 Arterial 59 mmHg (35-45); PO2 Arterial 78 mmHg (80-100)
[2020-12-07 05:37] LABS: ABS Basophils 0.1 10^3/ul (0-0.2); ABS Lymphocytes 0.5 10^3/ul (1.0-4.8); Eosinophil % 0.1 %; Hematocrit 39 % (35-47); Hemoglobin 12.7 g/dL (12.0-16.0); Lymphocyte % 14.4 %; Mean Corpuscular HGB Conc 32 g/dL (31-36); Mean Corpuscular Hemoglobin 28 pg (27-31); Mean Corpuscular Volume 86 fL (80-97); Mean Platelet Volume 8.2 fL (7.4-10.4); Nucleated Red Blood Cells % 0.2; Platelet Count 314 10^3/uL (150-450); Red Blood Count 4.57 10^6 /uL (3.70-4.87); Red Cell Distribution Width 15 % (10-15); White Blood Count 3.7 10^3/uL (3.5-10.8)
[2020-12-07 05:42] LABS: INR 1.1 (0.82-1.09)
[2020-12-07 05:52] LABS: EGFR African American 101.6 (>60); Potassium 3.6 mmol/L (3.5-5.0)
[2020-12-07] MEDS ORDERED: Heparin 5000 UNITS/ML 1 mL VIAL SUBCUT SCH (06:00)
[2020-12-07] MEDS ORDERED: methylPREDNISolone SOD 40 mg/ml 1 ml VIAL IV SCH (06:00)
[2020-12-07] MEDS: Budesonide NEB 0.5 MG/2 ML NEB.SOLN INH SCH ×3 (08:05→20:52)
[2020-12-07] MEDS ORDERED: Mometasone/Formoter 200/5 MDI INH SCH (09:00)
[2020-12-07 09:07] LABS: Urine Appearance Clear; Urine Bilirubin Negative (Negative); Urine Blood Negative (Negative); Urine Color Amber; Urine Glucose Negative (Negative); Urine Ketones 1+ (Negative); Urine Nitrite Negative (Negative); Urine Protein 1+(30 mg/dL) (Negative); Urine Specific Gravity 1.029 (1.002-1.030); Urine Urobilinogen Negative (Negative)
[2020-12-07 09:11] LABS: Urine Bacteria 1+ (Absent); Urine Red Blood Cell 1+(3-5/hpf) (Absent); Urine Squamous Epithelial Cell Present (Absent); Urine White Blood Cell Trace(0-5/hpf) (Absent)
[2020-12-07] MEDS ORDERED: Morphine ER 30 mg TAB ** extended release PO SCH (12:30)
[2020-12-07] MEDS: Enoxaparin 40 MG/0.4 ML SYR SUBCUT SCH (12:47)
[2020-12-07] MEDS: Albuterol HFA INHALER 8 gm MDI INH PRN ×2 (13:49→18:24)
[2020-12-07] MEDS ORDERED: Senna TAB 8.6 mg TAB PO PRN (17:21)
[2020-12-07] MEDS ORDERED: Polyethylene Glycol 3350 17 GM PACKET PO PRN (17:21)
[2020-12-07] MEDS: Magnesium Hydroxide LIQ 30 ML UDC PO SCH (21:07)
[2020-12-07] MEDS: Morphine ER 30 mg TAB ** extended release PO SCH (21:37)
[2020-12-07] MEDS: Nicotine Lozenge mini 2 MG LOZNG.MINI MT PRN (23:26)
[2020-12-08] MEDS: Azithromycin 500 mg/250 ml NS 500 MG/250 ML BAG IVPB SCH (03:00)
[2020-12-08] MEDS: Nicotine Lozenge mini 2 MG LOZNG.MINI MT PRN ×3 (03:02→08:05)
[2020-12-08] MEDS: Albuterol HFA INHALER 8 gm MDI INH PRN ×4 (04:06→22:24)
[2020-12-08] MEDS: Morphine ER 30 mg TAB ** extended release PO SCH ×3 (05:40→22:22)
[2020-12-08] MEDS: Magnesium Hydroxide LIQ 30 ML UDC PO SCH ×2 (08:02→22:22)
[2020-12-08] MEDS: Enoxaparin 40 MG/0.4 ML SYR SUBCUT SCH (08:02)
[2020-12-08] MEDS ORDERED: Perflutren Lipid Microsphere 3 ML VIAL ONE (09:17)
[2020-12-08] MEDS: Budesonide NEB 0.5 MG/2 ML NEB.SOLN INH SCH ×2 (09:40→19:20)
[2020-12-08] MEDS: Albuterol/Ipratropium NEB.SOL (2.5/0.5 MG) 3 ML NEB.SOLN INH SCH (23:32)
[2020-12-09] MEDS: Azithromycin 500 mg/250 ml NS 500 MG/250 ML BAG IVPB SCH (02:51)
[2020-12-09] MEDS: Albuterol/Ipratropium NEB.SOL (2.5/0.5 MG) 3 ML NEB.SOLN INH SCH ×6 (03:19→23:41)
[2020-12-09 05:36] LABS: PCO2 Arterial 60 mmHg (35-45); PO2 Arterial 80 mmHg (80-100)
[2020-12-09] MEDS: Morphine ER 30 mg TAB ** extended release PO SCH ×3 (05:58→21:09)
[2020-12-09 07:40] LABS: ABS Basophils 0.1 10^3/ul (0-0.2); ABS Lymphocytes 3.1 10^3/ul (1.0-4.8); ABS Monocytes 1.1 10^3/ul (0-0.8); ABS Neutrophils 6.8 10^3/ul (1.5-7.7); Eosinophil % 0.1 %; Hematocrit 36 % (35-47); Hemoglobin 11.4 g/dL (12.0-16.0); Lymphocyte % 28.1 %; Mean Corpuscular HGB Conc 32 g/dL (31-36); Mean Corpuscular Hemoglobin 28 pg (27-31); Mean Corpuscular Volume 87 fL (80-97); Mean Platelet Volume 8.7 fL (7.4-10.4); Platelet Count 312 10^3/uL (150-450); Red Blood Count 4.14 10^6 /uL (3.70-4.87); Red Cell Distribution Width 16 % (10-15); White Blood Count 11.1 10^3/uL (3.5-10.8)
[2020-12-09 07:59] LABS: Calcium 8.8 mg/dL (8.6-10.3); EGFR African American 106.8 (>60); EGFR Non-African American 88.3 (>60); Potassium 4.6 mmol/L (3.5-5.0)
[2020-12-09] MEDS: Budesonide NEB 0.5 MG/2 ML NEB.SOLN INH SCH ×2 (08:09→19:36)
[2020-12-09] MEDS: Magnesium Hydroxide LIQ 30 ML UDC PO SCH ×2 (09:09→21:09)
[2020-12-09] MEDS: Enoxaparin 40 MG/0.4 ML SYR SUBCUT SCH (09:11)
[2020-12-09] MEDS: Albuterol HFA INHALER 8 gm MDI INH PRN (10:11)
[2020-12-10] MEDS: Azithromycin 500 mg/250 ml NS 500 MG/250 ML BAG IVPB SCH (02:43)
[2020-12-10] MEDS: Albuterol/Ipratropium NEB.SOL (2.5/0.5 MG) 3 ML NEB.SOLN INH SCH ×6 (03:05→14:39)
[2020-12-10] MEDS: Morphine ER 30 mg TAB ** extended release PO SCH ×2 (05:52→14:24)
[2020-12-10] MEDS: Budesonide NEB 0.5 MG/2 ML NEB.SOLN INH SCH (07:44)
[2020-12-10] MEDS: Magnesium Hydroxide LIQ 30 ML UDC PO SCH (08:41)
[2020-12-10] MEDS: Enoxaparin 40 MG/0.4 ML SYR SUBCUT SCH (08:42)
[2020-12-10 10:14] LABS: ABS Basophils 0.1 10^3/ul (0-0.2); ABS Lymphocytes 4.1 10^3/ul (1.0-4.8); ABS Monocytes 1.1 10^3/ul (0-0.8); ABS Neutrophils 5.1 10^3/ul (1.5-7.7); Eosinophil % 0.3 %; Hematocrit 38 % (35-47); Hemoglobin 11.8 g/dL (12.0-16.0); Lymphocyte % 39.4 %; Mean Corpuscular HGB Conc 32 g/dL (31-36); Mean Corpuscular Hemoglobin 28 pg (27-31); Mean Corpuscular Volume 87 fL (80-97); Mean Platelet Volume 8.5 fL (7.4-10.4); Platelet Count 308 10^3/uL (150-450); Red Blood Count 4.31 10^6 /uL (3.70-4.87); Red Cell Distribution Width 16 % (10-15); White Blood Count 10.4 10^3/uL (3.5-10.8)
[2020-12-10 10:31] LABS: Calcium 8.8 mg/dL (8.6-10.3); EGFR African American 116.6 (>60); EGFR Non-African American 96.4 (>60); Potassium 4.3 mmol/L (3.5-5.0)
[2020-12-10 16:30] VITALS: BP 112/60
== END 2020-12-10 18:05 | disposition home or self-care (01) | DRG 190 ==
LOC: ED 20:56 → MED 12-07 00:59
PROVIDERS: ADMIT Internal Medicine; ATTEND Hospitalist

== ENCOUNTER 2021-04-01 04:39 | Inpatient (IN) ==
[2021-04-01] MEDS ORDERED: Albuterol HFA INHALER 8 gm MDI INH ONE ×2 (04:56→06:27)
[2021-04-01] MEDS ORDERED: Azithromycin 500 mg/250 ml NS 500 MG/250 ML BAG IVPB ONE (05:02)
[2021-04-01] MEDS ORDERED: methylPREDNISolone 125 mg 2 ML VIAL IV ONE (05:02)
[2021-04-01] MEDS ORDERED: cefTRIAXone 1 gm/50 mL NS BAG 1 GM/50 ML BAG IVPB ONE (05:03)
[2021-04-01 05:09] LABS: ABS Basophils 0.2 10^3/ul (0-0.2); ABS Eosinophils 0.4 10^3/ul (0-0.6); ABS Monocytes 1.1 10^3/ul (0-0.8); ABS Neutrophils 4.9 10^3/ul (1.5-7.7); Eosinophil % 4.3 %; Hematocrit 43 % (35-47); Hemoglobin 13.8 g/dL (12.0-16.0); Lymphocyte % 23.5 %; Mean Corpuscular HGB Conc 32 g/dL (31-36); Mean Corpuscular Hemoglobin 26 pg (27-31); Mean Corpuscular Volume 81 fL (80-97); Nucleated Red Blood Cells % 0.1; Platelet Count 202 10^3/uL (150-450); Red Blood Count 5.29 10^6 /uL (3.70-4.87); Red Cell Distribution Width 17 % (10-15); White Blood Count 8.6 10^3/uL (3.5-10.8)
[2021-04-01 05:28] LABS: Albumin 3.8 g/dL (3.2-5.2); Albumin/Globulin Ratio 1.4 (1-3); Calcium 9.5 mg/dL (8.6-10.3); Globulin 2.7 g/dL (2-4); Total Bilirubin 0.5 mg/dL (0.2-1.0); Total Protein 6.5 g/dL (6.4-8.9)
[2021-04-01 05:30] LABS: Troponin I 0.01 ng/mL (<0.03)
[2021-04-01] MEDS ORDERED: Iodixanol (CONTRAST) 320 MG/ML 100 ML SDV IV ONE (05:32)
[2021-04-01 06:15] LABS: Rapid COVID-19 Molecular Undetected (Undetected)
[2021-04-01 07:42] LABS: PCO2 Arterial 60 mmHg (35-45); PO2 Arterial 69 mmHg (80-100)
[2021-04-01 09:16] LABS: Magnesium 1.8 mg/dL (1.9-2.7)
[2021-04-01] MEDS: Albuterol/Ipratropium NEB.SOL (2.5/0.5 MG) 3 ML NEB.SOLN INH SCH ×4 (10:44→23:57)
[2021-04-01 11:11] LABS: PCO2 Arterial 58 mmHg (35-45); PO2 Arterial 73 mmHg (80-100)
[2021-04-01] MEDS ORDERED: Magnesium Sulfate 2 gm BAG 2 GM/50 ML BAG IVPB ONE (13:17)
[2021-04-01] MEDS: methylPREDNISolone SOD 40 mg/ml 1 ml VIAL IV SCH ×2 (14:06→20:58)
[2021-04-01] MEDS ORDERED: Morphine 2 MG/ML SYRINGE ONE (16:44)
[2021-04-01] MEDS: Heparin 5000 UNITS/ML 1 mL VIAL SUBCUT SCH (20:58)
[2021-04-01] MEDS: Morphine 2 MG/ML SYRINGE IV PRN (20:59)
[2021-04-02] MEDS: Albuterol/Ipratropium NEB.SOL (2.5/0.5 MG) 3 ML NEB.SOLN INH SCH ×5 (03:46→21:32)
[2021-04-02] MEDS: Morphine 2 MG/ML SYRINGE IV PRN ×3 (03:54→19:35)
[2021-04-02] MEDS: methylPREDNISolone SOD 40 mg/ml 1 ml VIAL IV SCH ×3 (05:19→21:23)
[2021-04-02 05:24] LABS: ABS Monocytes 0.8 10^3/ul (0-0.8); ABS Neutrophils 5.5 10^3/ul (1.5-7.7); Hematocrit 39 % (35-47); Hemoglobin 12.6 g/dL (12.0-16.0); Lymphocyte % 13.3 %; Mean Corpuscular HGB Conc 32 g/dL (31-36); Mean Corpuscular Hemoglobin 26 pg (27-31); Mean Corpuscular Volume 81 fL (80-97); Mean Platelet Volume 8.9 fL (7.4-10.4); Platelet Count 204 10^3/uL (150-450); Red Blood Count 4.82 10^6 /uL (3.70-4.87); Red Cell Distribution Width 16 % (10-15); White Blood Count 7.3 10^3/uL (3.5-10.8)
[2021-04-02 05:40] LABS: Albumin 3.4 g/dL (3.2-5.2); Albumin/Globulin Ratio 1.5 (1-3); Globulin 2.3 g/dL (2-4); Magnesium 2.3 mg/dL (1.9-2.7); Phosphorus 3.4 mg/dL (2.5-5.0); Potassium 4.3 mmol/L (3.5-5.0); Total Bilirubin 0.3 mg/dL (0.2-1.0); Total Protein 5.7 g/dL (6.4-8.9)
[2021-04-02] MEDS ORDERED: Azithromycin 500 mg/250 ml NS 500 MG/250 ML BAG IVPB SCH (06:00)
[2021-04-02] MEDS ORDERED: cefTRIAXone 1 gm/50 mL NS BAG 1 GM/50 ML BAG IVPB SCH (07:00)
[2021-04-02] MEDS: Pantoprazole VIAL 40 MG VIAL IV SCH (08:22)
[2021-04-02] MEDS: Heparin 5000 UNITS/ML 1 mL VIAL SUBCUT SCH ×2 (08:22→21:23)
[2021-04-02 11:25] LABS: Hepatitis B Surface Antigen Nonreactive (Nonreactive)
[2021-04-02 11:30] LABS: Hepatitis A Ab IgM Negative (Negative); Hepatitis B Core IgM Nonreactive (Nonreactive)
[2021-04-02 12:00] LABS: HIV 4th Generation Nonreactive (Nonreactive)
[2021-04-02 12:34] LABS: Hepatitis C Antibody Reactive (Negative)
[2021-04-02] MEDS ORDERED: Albuterol HFA INHALER 8 gm MDI INH PRN (19:50)
[2021-04-03] MEDS: Morphine 2 MG/ML SYRINGE IV PRN ×3 (00:54→15:40)
[2021-04-03] MEDS: Aspirin EC 81 mg TAB.EC (enteric coated) PO SCH (08:04)
[2021-04-03] MEDS: methylPREDNISolone SOD 40 mg/ml 1 ml VIAL IV SCH (08:05)
[2021-04-03] MEDS: Pantoprazole VIAL 40 MG VIAL IV SCH (08:05)
[2021-04-03] MEDS: Heparin 5000 UNITS/ML 1 mL VIAL SUBCUT SCH (08:05)
[2021-04-03] MEDS ORDERED: Albuterol/Ipratropium NEB.SOL (2.5/0.5 MG) 3 ML NEB.SOLN INH PRN (08:32)
[2021-04-03] MEDS ORDERED: Albuterol 2.5mg/3 ml (0.083%) NEB.SOLN INH PRN (08:53)
[2021-04-03] MEDS: CMC:FLUTICAS/UMECLI/VILANT 200-62.5-25 MDI (NF) INH SCH (12:10)
[2021-04-03] MEDS ORDERED: Albuterol HFA INHALER 8 gm MDI INH PRN (12:34)
[2021-04-03] MEDS: Enoxaparin 40 MG/0.4 ML SYR SUBCUT SCH (20:45)
[2021-04-03] MEDS: Nicotine PATCH 14 MG/24 HR PATCH TRANSDERM SCH (20:46)
[2021-04-03] MEDS: oxyCODONE SR 20 mg TAB PO PRN (23:48)
[2021-04-04 06:07] LABS: ABS Lymphocytes 2.7 10^3/ul (1.0-4.8); ABS Monocytes 1.4 10^3/ul (0-0.8); ABS Neutrophils 7.1 10^3/ul (1.5-7.7); Hematocrit 40 % (35-47); Hemoglobin 12.4 g/dL (12.0-16.0); Lymphocyte % 23.8 %; Mean Corpuscular HGB Conc 31 g/dL (31-36); Mean Corpuscular Hemoglobin 25 pg (27-31); Mean Corpuscular Volume 81 fL (80-97); Platelet Count 200 10^3/uL (150-450); Red Blood Count 4.86 10^6 /uL (3.70-4.87); Red Cell Distribution Width 17 % (10-15); White Blood Count 11.2 10^3/uL (3.5-10.8)
[2021-04-04 06:25] LABS: Potassium 4.1 mmol/L (3.5-5.0)
[2021-04-04] MEDS: CMC:FLUTICAS/UMECLI/VILANT 200-62.5-25 MDI (NF) INH SCH (07:41)
[2021-04-04] MEDS: Aspirin EC 81 mg TAB.EC (enteric coated) PO SCH (08:54)
[2021-04-04] MEDS: Nicotine PATCH 14 MG/24 HR PATCH TRANSDERM SCH (08:55)
[2021-04-04] MEDS: oxyCODONE SR 20 mg TAB PO PRN ×2 (09:02→16:47)
[2021-04-04] MEDS ORDERED: Albuterol HFA INHALER 8 gm MDI INH PRN (16:06)
[2021-04-04] MEDS: SPIRIVA Respimat (tiotropium) 2.5 mcg/inh Inhaler INH SCH (19:15)
[2021-04-04] MEDS: Enoxaparin 40 MG/0.4 ML SYR SUBCUT SCH (19:49)
[2021-04-05] MEDS: oxyCODONE SR 20 mg TAB PO PRN ×2 (00:23→09:36)
[2021-04-05 05:52] LABS: Hematocrit 40 % (35-47); Hemoglobin 12.7 g/dL (12.0-16.0); Mean Corpuscular HGB Conc 31 g/dL (31-36); Mean Corpuscular Hemoglobin 26 pg (27-31); Mean Corpuscular Volume 84 fL (80-97); Mean Platelet Volume 9.3 fL (7.4-10.4); Platelet Count 188 10^3/uL (150-450); Red Blood Count 4.83 10^6 /uL (3.70-4.87); Red Cell Distribution Width 17 % (10-15); White Blood Count 9.2 10^3/uL (3.5-10.8)
[2021-04-05 06:22] LABS: Calcium 8.9 mg/dL (8.6-10.3); Magnesium 1.9 mg/dL (1.9-2.7); Potassium 4.2 mmol/L (3.5-5.0)
[2021-04-05] MEDS ORDERED: Magnesium Sulfate IV 1GM/100ML 1 GM/100 ML BAG IV ONE (07:35)
[2021-04-05] MEDS: SPIRIVA Respimat (tiotropium) 2.5 mcg/inh Inhaler INH SCH (07:40)
[2021-04-05] MEDS: CMC:FLUTICAS/UMECLI/VILANT 200-62.5-25 MDI (NF) INH SCH (07:40)
[2021-04-05] MEDS: Aspirin EC 81 mg TAB.EC (enteric coated) PO SCH (07:42)
[2021-04-05] MEDS: Nicotine PATCH 14 MG/24 HR PATCH TRANSDERM SCH (07:46)
[2021-04-05 13:18] VITALS: BP 131/73
== END 2021-04-05 15:40 | disposition home or self-care (01) | DRG 190 ==
LOC: ED 04:39 → SUATTDRO 08:37 → ICU 08:37 → MEDTELE 04-02 20:15
PROVIDERS: ADMIT Internal Medicine Critical Care Medicine; ATTEND Hospitalist